=== PATIENT | female | born 1940 | race Caucasian/White ===

== ENCOUNTER → 2016-09-13 | Outpatient (CLI) | payer MEDICARE, OTHER | END | disposition home or self-care (01) | LOC: GMAH 14:46 | PROVIDERS: ATTEND Family Medicine | DX: E03.9 Hypothyroidism, unspecified (principal) ==

== ENCOUNTER → 2016-10-19 | Outpatient (CLI) | payer MEDICARE, OTHER ==
--- NOTE | 2016-10-20 10:00 | MAM ---
History: Well woman exam. Date of exam: 10/19/2016 Services provided: Bilateral full field digital screening mammography. CAD, the images were reviewed with R2 computer aided detection. FINDINGS: Glandular tissue is scattered glandular pattern. Study is compared with 2014 exam. Vascular calcifications. Stable distribution of the breast parenchyma with no dominant mass or clustered microcalcification. No architectural distortion. IMPRESSION: Benign exam Recommendation: Routine annual mammography BIRAD CATEGORY: 2 BENIGN Electronically signed by: Jen Lincoln MD 10/20/2016 9:59 AM CDT
== END ==
LOC: MAMMO 13:53
PROVIDERS: ATTEND Family Medicine
DX: Z12.31 Encounter for screening mammogram for malignant neoplasm of breast (principal)

== ENCOUNTER → 2017-04-17 | Outpatient (CLI) | payer MEDICARE, OTHER ==
--- NOTE | 2017-04-17 21:00 | US ---
EXAM DESCRIPTION: Carotid Duplex: Ultrasound. CLINICAL HISTORY: CEREBROVASCULAR DISEASE COMPARISON: Ultrasound carotid 04/03/2015. TECHNIQUE: Transcutaneous scanning utilizing 2-dimensional and Doppler modes to evaluate the bilateral carotid systems and vertebral arteries. Percentage of diameter of stenosis or no stenosis recorded will be based upon NASCET criteria. FINDINGS: Peak systolic/end diastolic (CM-Sec) CCA Right 68/18 Left 93/18. ICA Right proximal 91/29, mid 97/24. Left proximal 121/26, mid 112/32. Vertebral Right 66/19 Left 69/13. ECA (PS Only) Right 101 left 89. ICA/CCA peak systolic ratio: Right 1.4 Left 1.3 ICA/CCA end diastolic ratio: Right 1.3 Left 1.5 Vertebral arteries: antegrade flow. Comments: Marked atherosclerotic calcification in the bilateral distal common carotids, the common carotid bulbs, and the proximal ICAs. Spectral broadening in the distal left CCA and the proximal and mid left ICA. Also in the proximal ECA. Spectral broadening in the distal right CCA, ECA, and the proximal and mid right ICA. Area stenosis in the distal right CCA is 18%. Diameter stenosis is 42%. Area Stenosis in the right CCA bulb is 38%. Diameter stenosis is 67%. Area stenosis in the proximal right ICA is 26%. Diameter stenosis is 25%. Area stenosis in the left CCA bulb is 66%. Diameter stenosis is 46%. Area stenosis in the proximal left ICA is 44%. Diameter stenosis is 60%. IMPRESSION: 1. Doppler evaluation of the bilateral carotid systems and vertebral arteries shows no hemodynamically significant stenoses. However, there are near critical stenoses on the two-dimensional exam, between 60 and 70%, in the bilateral CCA bulbs. Consider correlation with CTA. 2. Prominent amount of calcified plaque seen in the carotid arteries bilaterally. Bilateral vertebral arteries showed antegrade-cephalad flow. Electronically signed by: Anatoliy Sagastume MD 04/17/2017 8:59 PM CDT Workstation: [id number]
== END | disposition home or self-care (01) ==
LOC: US 16:58
PROVIDERS: ATTEND Family Medicine
DX: I65.23 Occlusion and stenosis of bilateral carotid arteries (principal); I69.998 Other sequelae following unspecified cerebrovascular disease; I67.9 Cerebrovascular disease, unspecified

== ENCOUNTER → 2017-05-03 | Outpatient (CLI) | payer MEDICARE, OTHER | LOC: CT 10:30 | PROVIDERS: ATTEND Family Medicine | DX: I10 Essential (primary) hypertension (principal); I65.23 Occlusion and stenosis of bilateral carotid arteries ==

== ENCOUNTER → 2017-06-21 | Outpatient (CLI) | payer MEDICARE, OTHER ==
--- NOTE | 2017-06-21 20:22 | CT ---
EXAM DESCRIPTION: Head CLINICAL HISTORY: 76 years, Female, OTHER LOCALIZED VISUAL FIELD DEFECT COMPARISON: FINDINGS: Unenhanced images through the brain. This examination was performed according to our departmental dose optimization program, which includes automatic exposure control, adjustment of the MA and/or kV according to the patient size and/or use of iterative reconstruction technique. Mildly prominent ventricles and sulci probably within normal limits for age. Moderate microischemic change periventricular white matter. Mild ethmoid sinus mucosal thickening. IMPRESSION: Mildly prominent ventricles and sulci within normal limits for age. Mild microischemic change periventricular white matter. No hemorrhage or mass. Electronically signed by: Alexander Chaves MD 06/21/2017 8:21 PM HR DIRECTOR
== END | disposition home or self-care (01) ==
LOC: CT 13:26
PROVIDERS: ATTEND Family Medicine
DX: H53.459 Other localized visual field defect, unspecified eye (principal)

== ENCOUNTER → 2017-11-14 | Outpatient (CLI) | payer MEDICARE, OTHER ==
--- NOTE | 2017-11-16 09:21 | MAM ---
EXAM DESCRIPTION: 3D Screening BILATERAL : Digital Mammography. CLINICAL HISTORY: 76 years Female SCREENING . No complaints. No family history of breast cancer. Postmenopausal. No HRT.. COMPARISON: 2-D digital screening bilateral study 10/19/2016. Report from prior examination also reviewed. TECHNIQUE: Bilateral CC and MLO projection full-field images, 3-D tomosynthesis digital mammographic technique. Also bilateral synthesized CC/ MLO full-field images. CAD not utilized. FINDINGS: The breast parenchymal density pattern is: Heterogeneously dense breast tissue, which may obscure small masses. No skin thickening or nipple retraction bilateral solitary microcalcifications. Bilateral vascular calcifications. No focal, stellate mass or density, focal asymmetry , and no suspicious microcalcifications bilaterally. Stable mammograms compared to prior study, taking into account differences in mammographic technique IMPRESSION: BI-RADS CATEGORY: 2 - BENIGN FINDINGS. FOLLOW UP: Routine digital bilateral screening, one year interval from November 2017. Written communication explaining the IMPRESSION and follow-up, will be mailed to the patient and referring health care provider. According to the [employer], yearly mammograms are recommended starting at age 40 and continuing as long as a woman is in good health. Any breast change noted on a breast self-exam should be reported promptly to the patient's healthcare provider. Breast MRI is recommended for women with an approximately 20-25% or greater lifetime risk of breast cancer, including women with a strong family history of breast or ovarian cancer and women who have been treated for Hodgkin's disease. A negative mammographic report should not delay tissue diagnosis in patients with significant clinical history or physical findings. Extremely dense breast tissue limits the sensitivity of digital mammography. Electronically signed by: Anatoliy Sagastume MD 11/16/2017 9:20 AM CDT
== END ==
LOC: MAMMO 10:30
PROVIDERS: ATTEND Family Medicine
DX: Z12.31 Encounter for screening mammogram for malignant neoplasm of breast (principal)

== ENCOUNTER → 2017-12-28 | Outpatient (CLI) | payer MEDICARE, OTHER | LOC: GMAH 11:19 | PROVIDERS: ATTEND Family Medicine | DX: E03.9 Hypothyroidism, unspecified (principal); E78.5 Hyperlipidemia, unspecified; I10 Essential (primary) hypertension ==

== ENCOUNTER → 2018-01-23 | Outpatient (CLI) | payer MEDICARE, OTHER | LOC: SOLHH 17:31 | PROVIDERS: ATTEND Family Medicine | DX: N39.0 Urinary tract infection, site not specified (principal); G31.1 Senile degeneration of brain, not elsewhere classified ==

== ENCOUNTER → 2018-02-01 | Outpatient (CLI) | payer MEDICARE, OTHER | LOC: SOLHH 11:03 | PROVIDERS: ATTEND Family Medicine | DX: R41.0 Disorientation, unspecified (principal) ==